=== PATIENT | male | born 1955 | race Caucasian/White ===

== ENCOUNTER 2020-08-18 22:38 | Emergency (ER) | payer OTHER ==
[~2020-08-18] VITALS: Ht 180.3 cm; Wt 72.6 kg
[2020-08-18] MEDS ORDERED: MICARDIS40 MG PO (22:50)
[2020-08-19] MEDS ORDERED: MICARDIS HCT 81 EACH PO (05:43)
== END 2020-08-19 06:07 | disposition home or self-care (01) ==
LOC: ER
DX: R00.2 Palpitations (principal); R07.89 Other chest pain; I10 Essential (primary) hypertension

== ENCOUNTER 2020-12-10 09:07 | Outpatient (CLI) | payer OTHER ==
[~2020-12-10 09:07] MED LIST: MICARDIS HCT 81 EACH PO; MICARDIS40 MG PO
== END 2020-12-10 09:09 | disposition home or self-care (01) ==
LOC: SONOGRAMA 09:07 → MAMO-SONO 09:15
PROVIDERS: ATTEND Internal Medicine Cardiovascular Disease
DX: R10.84 Generalized abdominal pain (principal)

== ENCOUNTER 2021-07-27 06:00 | Inpatient (IN) | payer OTHER ==
[~2021-07-27] VITALS: Ht 180.3 cm; Wt 74.4 kg
[2021-07-28] MEDS ORDERED: NORVASC2.5 MG (11:32)
[2021-07-28] MEDS ORDERED: OMEGA-3 ACID ETH1 GM (11:32)
[2021-07-29] MEDS ORDERED: PERCOCET 5-3251 EACH PO (12:19)
[2021-07-29] MEDS ORDERED: POLY119PG PO (12:19)
[2021-07-29] MEDS ORDERED: NEURONTIN600 M1 PO (12:19)
== END 2021-07-29 19:48 | disposition home or self-care (01) | DRG 351 ==
LOC: CIR.AMB 06:00 → SURG 07-28 10:43 → O/R 07-28 10:43 → SURG 07-28 11:05
PROVIDERS: ADMIT Surgery; ATTEND Surgery
PROC: 0YU54JZ Supplement Right Inguinal Region with Synthetic Substitute, Percutaneous Endoscopic Approach (ICD-10-PCS; principal; 2021-07-28)
PROC: 4A12X4Z Monitoring of Cardiac Electrical Activity, External Approach (ICD-10-PCS; 2021-07-28)
PROC: 0CJS8ZZ Inspection of Larynx, Via Natural or Artificial Opening Endoscopic (ICD-10-PCS; 2021-07-29)
DX: K40.90 Unilateral inguinal hernia, without obstruction or gangrene, not specified as recurrent (principal); T79.7XXA Traumatic subcutaneous emphysema, initial encounter; Z20.822 Contact with and (suspected) exposure to COVID-19

== ENCOUNTER 2023-07-12 16:29 | Outpatient (CLI) | payer OTHER ==
[~2023-07-12 16:29] MED LIST changes: +NEURONTIN600 M1 PO; +NORVASC2.5 MG; +OMEGA-3 ACID ETH1 GM; +PERCOCET 5-3251 EACH PO; +POLY119PG PO
== END 2023-07-12 16:31 | disposition home or self-care (01) ==
LOC: SONOGRAMA 16:29
PROVIDERS: ATTEND Pathology Anatomic Pathology & Clinical Pathology
DX: D34 Benign neoplasm of thyroid gland (principal); E07.89 Other specified disorders of thyroid; E04.2 Nontoxic multinodular goiter